=== PATIENT | female | born 1985 | race Caucasian/White ===

== ENCOUNTER 2016-06-10 13:53 | Emergency (ER) | payer SELFPAY ==
[2016-06-10 15:37] LABS: Bilirubin,Urine NEG (Negative); Blood,Urine SM (Negative); Ketones,Urine 20 mg/dL (Negative); Leukocyte Esterase,Urine SM (Negative); Mucus,Urine FEW /HPF; Nitrite,Urine POS (Negative); Protein,Urine <15 mg/dL mg/dL (Negative)
[2016-06-10 15:38] LABS: Alanine Aminotransferase 15 units/L (7-56); Albumin 4.5 g/dL (3.9-5); Albumin/Globulin Ratio 1.5 %; Alkaline Phosphatase 65 units/L (35-129); Anion Gap 18 mmol/L; Bilirubin,Total < 0.20 mg/dL (0.1-1.2); Blood Urea Nitrogen 5 mg/dL (7-17); Carbon Dioxide 21 mmol/L (22-30); Chloride 97.7 mmol/L (98-107); Glucose 93 mg/dL (65-100); Lipase 44 units/L (13-60); Potassium 3.4 mmol/L (3.6-5.0); Sodium 133 mmol/L (137-145); Total Protein 7.6 g/dL (6.3-8.2)
[2016-06-10 15:59] LABS: Basophils % (Auto) 0.5 % (0.0-1.8); Eosinophils % (Auto) 2.1 % (0.0-4.3); Hematocrit 33.4 % (30.3-42.9); Hemoglobin 10.7 gm/dl (10.1-14.3); Mean Corpuscular HGB Conc 32 % (30-34); Mean Corpuscular Volume 70 fl (79-97); Platelet Count 415 K/mm3 (140-440); Red Blood Count 4.75 M/mm3 (3.65-5.03); Red Cell Distribution Width 19.5 % (13.2-15.2); White Blood Count 6.9 K/mm3 (4.5-11.0)
[2016-06-10 16:00] LABS: Mean Corpuscular Hemoglobin 23 pg (28-32)
[2016-06-10] MEDS ORDERED: ZOFRAN IV ONE (21:17)
[2016-06-10] MEDS ORDERED: NACL 0.9% 1000 ML 1,000 ML IV ONE (21:17)
[2016-06-10] MEDS ORDERED: TYLENOL PO ONE (21:17)
--- NOTE | 2016-06-10 21:22 | Emergency Department Report ---
ED HPI - General Chief complaint: Abdominal Pain Stated complaint: PREG/ABDOMINAL PAIN Time Seen by Provider: 06/10/16 21:17 Source: patient Mode of arrival: Ambulatory Limitations: No Limitations - History of Present Illness Initial comments: Patient is a 30-year-old female at approximately 6 weeks gestation presenting with lower abdominal cramping 3 days. Patient reports for the past 3 days she's had constant, sharp, crampy abdominal pain without associated radiation. Associated nausea and tactile fevers. Patient has not tried anything [id number]. Patient is smoking a pack per day, does not take any prenatals, and has no care yet. Pt does reports constipation, but she is normally irregular, last BM was small and this morning. She has had C- sections in the past. Otherwise no vomiting, shortness of breath, chest pain, trauma, falls, sick contacts, travel, vaginal fluid loss, vaginal bleeding - Related Data Previous Rx's Medication Instructions Recorded Last Taken Type Cephalexin [Keflex] 500 mg PO ONCE #20 capsule 06/11/16 Unknown Rx Allergies Allergy/AdvReac Type Severity Reaction Status Date / Time No Known Allergies Allergy Unverified 06/10/16 14:48 ED Review of Systems ROS: Stated complaint: PREG/ABDOMINAL PAIN Other details as noted in HPI Comment: All other systems reviewed and negative ED Past Medical Hx - Past Medical History Previous Medical History?: No - Surgical History Additional Surgical History: - Social History Smoking Status: Current Every Day Smoker Substance Use Type: None - Medications Home Medications: Home Medications Medication Instructions Recorded Confirmed Last Taken Type Cephalexin [Keflex] 500 mg PO ONCE #20 capsule 06/11/16 Unknown Rx ED Physical Exam - General Limitations: No Limitations General appearance: alert, in no apparent distress - Head Head exam: Present: atraumatic, normocephalic - Eye Eye exam: Present: normal appearance - ENT ENT exam: Present: mucous membranes moist - Neck Neck exam: Present: normal inspection - Respiratory Respiratory exam: Present: normal lung sounds bilaterally. Absent: respiratory distress - Cardiovascular Cardiovascular Exam: Present: regular rate, normal rhythm, normal heart sounds. Absent: irregular rhythm, systolic murmur, diastolic murmur, rubs, gallop - GI/Abdominal GI/Abdominal exam: Present: soft, normal bowel sounds. Absent: distended, tenderness, guarding, rebound, rigid, hyperactive bowel sounds, hypoactive bowel sounds, mass, pulsatile mass, hernia - Extremities Exam Extremities exam: Present: normal inspection - Back Exam Back exam: Present: normal inspection - Neurological Exam Neurological exam: Present: alert, oriented X3 - Psychiatric Psychiatric exam: Present: normal affect, normal mood - Skin Skin exam: Present: warm, dry, intact, normal color. Absent: rash ED Course Vital Signs 06/10/16 06/10/16 06/10/16 14:48 21:15 21:31 Temperature 98.0 F 98.3 F Pulse Rate 79 72 Respiratory 18 18 14 Rate Blood Pressure 113/63 Blood Pressure 122/78 [Right] O2 Sat by Pulse 100 99 Oximetry ED Medical Decision Making - Lab Data Result diagrams: 06/10/16 15:00 06/10/16 15:00 - Radiology Data Radiology results: image reviewed Pelvic US: IUP 7w 5d HR: 143 bpm - Medical Decision Making Results discussed with patient. Pt encouraged to follow up with her OB this week , smoking cessation discussed, importance of pre- vitamins discussed. Pt given dose of keflex here in the ED Critical care attestation.: If time is entered above; I have spent that time in minutes in the direct care of this critically ill patient, excluding procedure time. ED Disposition Clinical Impression: Abdominal pain during , UTI (urinary tract infection) during Disposition: DISCHARGED TO HOME OR SELFCARE Is pt being admited?: No Condition: Stable Instructions: Urinary Tract Infection in Women (ED), Abdominal Pain in (ED) Prescriptions: Cephalexin [Keflex] 500 mg PO ONCE #20 capsule Referrals: PRIMARY CARE, [Primary Care Provider] - 3-5 Days
[2016-06-10] MEDS ORDERED: MORPHINE IV ONE (23:33)
[2016-06-11] MEDS ORDERED: KEFLEX PO ONE (00:31)
--- NOTE | 2016-06-11 00:59 | Ultrasound Report ---
FINAL REPORT PROCEDURE: US OB TRANSVAGINAL TECHNIQUE: Real-time transvaginal sonography of the uterus, placenta, amniotic fluid, adnexa, and fetus was performed with image documentation. Measurements were obtained to determine age/size. M-mode Doppler was used to document heartbeat. CPT 19197 HISTORY: threatened ab COMPARISON: Transabdominal OB ultrasound also performed today. FINDINGS: The report for this exam was generated using images from both the transabdominal and transvaginal OB ultrasound both of which were performed today. Gestational sac is visualize located centrally in the endometrial canal. heart rate of 149 beats per minute is detected. No evidence of subchorionic hemorrhage. Shape of the gestational sac appears normal. pole and yolk sac are visualized. Mahomet-rump length measurement 12.3 millimeters corresponds to an age is 7 weeks 3 days. Mildly hypoechoic mural nodule is seen mid uterine myometrium to the right measuring 3.6 x 3.6 centimeter consistent with a uterine fibroid. No free fluid is seen in the cul-de-sac. The right ovary is unremarkable measuring 3.3 x 2.2 x 3.4 centimeter. The left ovary measures 3.6 x 1.4 x 2.7 centimeter and shows no abnormality. IMPRESSION: There is a single living intrauterine . By crown-rump length measurement the estimated age is 7 weeks 3 days placing EDC 01/25/2017 plus or minus 0.5 weeks. No evidence of subchorionic hemorrhage. Uterine fibroid appears to be present. Ovaries are unremarkable. No evidence of subchorionic hemorrhage. Shape of the gestational sac appears normal. Fetus currently too small to assess anatomy. Consider follow-up exam at 18-20 weeks.
--- NOTE | 2016-06-11 01:00 | Ultrasound Report ---
FINAL REPORT PROCEDURE: US OB \T\lt; = 14 WEEKS FETUS TECHNIQUE: Real-time transabdominal sonography of the uterus, placenta, amniotic fluid, adnexa, and fetus was performed with image documentation. Measurements were obtained to determine age/size. M-mode Doppler was used to document heartbeat. CPT 03367 HISTORY: threatened ab COMPARISON: Transvaginal OB ultrasound also performed today. FINDINGS: The report for this exam was generated using images from both the transabdominal and transvaginal OB ultrasound both of which were performed today. Gestational sac is visualize located centrally in the endometrial canal. heart rate of 149 beats per minute is detected. No evidence of subchorionic hemorrhage. Shape of the gestational sac appears normal. pole and yolk sac are visualized. [place]-rump length measurement 12.3 millimeters corresponds to an age is 7 weeks 3 days. Mildly hypoechoic mural nodule is seen mid uterine myometrium to the right measuring 3.6 x 3.6 centimeter consistent with a uterine fibroid. No free fluid is seen in the cul-de-sac. The right ovary is unremarkable measuring 3.3 x 2.2 x 3.4 centimeter. The left ovary measures 3.6 x 1.4 x 2.7 centimeter and shows no abnormality. IMPRESSION: There is a single living intrauterine . By crown-rump length measurement the estimated age is 7 weeks 3 days placing EDC 01/25/2017 plus or minus 0.5 weeks. No evidence of subchorionic hemorrhage. Uterine fibroid appears to be present. Ovaries are unremarkable. No evidence of subchorionic hemorrhage. Shape of the gestational sac appears normal. Fetus currently too small to assess anatomy. Consider follow-up exam at 18-20 weeks.
[2016-06-11 01:22] VITALS: BP 118/72
== END 2016-06-11 01:23 | disposition home or self-care (01) ==
LOC: ED 13:53
DX: O23.41 Unspecified infection of urinary tract in pregnancy, first trimester (principal); R10.9 Unspecified abdominal pain; F17.200 Nicotine dependence, unspecified, uncomplicated; Z3A.01 Less than 8 weeks gestation of pregnancy
CPT/HCPCS: 36415; 76801; 76817; 80053; 81001; 83690; 84702; 84703; 85025; 96365; 96366; 96375; 99284; J2270; J2405; J7030

== ENCOUNTER 2020-02-28 22:05 | Inpatient (IN) | payer OTHER ==
[2020-02-28] MEDS ORDERED: LACTATED RINGERS 1,000 ML ONE (23:01)
[2020-02-28] MEDS ORDERED: LACTATED RINGERS 1,000 ML IV ONE (23:23)
[2020-02-29] MEDS ORDERED: TERBUTALINE 1 MG/1 ML INJ ONE (00:04)
[2020-02-29] MEDS ORDERED: FAMOTIDINE 20 MG/2 ML INJ IV ONE (00:07)
[2020-02-29] MEDS ORDERED: BICITRA ORAL LIQD 30ML PO ONE (00:07)
[2020-02-29] MEDS ORDERED: METOCLOPRAMIDE 10 MG/2 ML INJ IV ONE (00:07)
--- NOTE | 2020-02-29 00:14 | History and Physical Report ---
History of Present Illness Date of examination: 02/29/20 Chief complaint: labor contractions, prev c/s x 2 History of present illness: EDC Confirmation: 03/14/2020 Past History : 8 Term Births: 3 Premature Births: 2 Living Children: 4 Para: 5 Mult. Births: 0 Prev : 2 Prev. attempt? 1 Aborta: 2 Elect. Ab: 1 Spont. Ab: 1 Ectopics: 0 # 1 Delivery date: 2003 Weeks Gestation: ?? labor: yes Delivery type: Delivery location: [place] Sex: Male weight: 5# Comments: , unsure of gestation # 2 Delivery date: 2011 Weeks Gestation: term labor: no Delivery type: Delivery location: [place] Infant Sex: Male weight: 5# # 3 Delivery date: 2013 Weeks Gestation: term labor: no Delivery type: Delivery location: [place] [facility] Sex: Male weight: ?? Comments: Emergency c/s for distress, unknown weight # 4 Delivery date: 2014 Weeks Gestation: term labor: no Delivery type: Delivery location: [place] [facility] Sex: Female weight: 6#3 # 5 Delivery date: 2015 Weeks Gestation: labor: yes Delivery type: Delivery location: [place] [facility] Sex: Female weight: 4# Comments: 3 months of age, sleep apnea # 6 Delivery date: 2016 Delivery type: EAB # 7 Delivery date: 2018 Delivery type: SAB Comments: expectant management Past Medical History: Reviewed history from 02/05/2019 and no changes required: Negative Past Medical History Past Surgical History: Reviewed history from 02/05/2019 and no changes required: c/s x 2 Past Medical History 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 of genital herpes: no Partner hx. of genital herpes: no Rash, Viral, or Febrile illness since last LMP? no Varicella/Chicken Pox Status: Previous Disease Genetic History Congenital Heart Defect: Mom: no Dad: no Max Disease: Mom: no Dad: no Thalassemia Mom: no Dad: no Neural Tube Defect Mom: no Dad: no Down's Syndrome Mom: no Dad: no Antione-Sachs Mom: no Dad: no Sickle Cell Disease/Trait Mom: no Dad: no Hemophilia Mom: no Dad: no Muscular Dystrophy Mom: no Dad: no Cystic Fibrosis Mom: no Dad: no Macarthur Chorea Mom: no Dad: no Mental Retardation Mom: no Dad: no Fragile X Mom: no Dad: no Other Genetic/Chromosomal Disorder Mom: no Dad: no Child w/other defect Mom: no Dad: no Enviromental Exposures Xray Exposure: no Medication, drug, or alcohol use since LMP: no Chemical/Other Exposure: no Exposure to Cat Liter: no Hx of Parvovirus (Fifth Disease): no Occupational Exposure to Children: none Active Medications (reviewed today): None Current Allergies (reviewed today): No known allergies Past History Past Medical History: other (see HPI) Past Surgical History: other (see HPI) 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) Family/Genetic History: other (see HPI) Social history: no significant social history - Obstetrical History Expected Date of Delivery: 03/14/20 Actual Gestation: 38 Week(s) 0 Day(s) : 8 Para: 5 Hx # Term Pregnancies: 3 Number of Pregnancies: 2 Spontaneous Abortions: 1 Induced : 1 Number of Living Children: 4 Medications and Allergies Allergies Allergy/AdvReac Type Severity Reaction Status Date / Time No Known Allergies Allergy Unverified 06/10/16 14:48 Active Meds: Active Medications Citric Acid/Sodium Citrate (Bicitra Oral Liqd 30ml) 30 ml PO ONCE ONE Stop: 02/29/20 00:08 Famotidine (Famotidine 20 Mg/2 Ml Inj) 20 mg IV ONCE ONE Stop: 02/29/20 00:08 Lactated Ringer's (Lactated Ringers) 1,000 mls @ 999 mls/hr IV BOLUS ONE Stop: 02/29/20 00:23 Lactated Ringer's (Lactated Ringers) 1,000 mls @ 2,250 mls/hr IV PREOP VALENCIA Stop: 03/01/20 00:42 Oxytocin/Sodium Chloride (Pitocin/Ns 30 Unit/500ml) 30 units in 500 mls @ 0 mls/hr IV TITR VALENCIA; Protocol Cefazolin Sodium (Ancef/Sterile Water 2 Gm/20 Ml) 2 gm in 20 mls @ 80 mls/hr IV PREOP NR; Protocol Metoclopramide HCl (Metoclopramide 10 Mg/2 Ml Inj) 10 mg IV ONCE ONE Stop: 02/29/20 00:08 Review of Systems All systems: negative - Vital Signs Vital signs: Vital Signs Temp Resp 98.1 F 20 02/28/20 22:26 02/28/20 22:26 Temp Pulse Resp BP Pulse Ox 98.1 F 94 H 20 135/90 100 02/28/20 22:26 02/29/20 00:05 02/28/20 22:26 02/29/20 00:02 02/29/20 00:05 - Physical Exam Breasts: Positive: normal Cardiovascular: Regular rate Lungs: Positive: Clear to auscultation, Normal air movement Abdomen: Positive: normal appearance, soft Genitourinary (Female): Positive: normal external genitalia, normal perenium Vulva: both: normal Vagina: Positive: normal moisture Uterus: Positive: normal size Anus/Rectum: Positive: normal perianal skin Extremities: Positive: normal Deep Tendon Reflex Grade: Normal +2 - Obstetrical FHR: category 2 Uterine Contraction Monitor Mode: External Cervical Dilatation: 2 Cervical Effacement Percentage: 50 station: -3 Uterine Contraction Frequency (min): 2-3 Uterine Contraction Duration: 60 Uterine Contraction Pattern: Regular Uterine Tone Measurement Phase: Resting Uterine Contraction Intensity: Mild Results All other labs normal. Assessment and Plan 34y/o @ 38+0 weeks arrived with c/o contractions. she was given a 1 liter bolus and ctx continued and increased in frequency and intensity. FHT are not tolerating ctx, 4 minute decelerations down to the 60's noted that resolved with rn interventions. 1 dose of brethine given, will prepare for repeat c/s. Dr. Burciaga aware and in route. - Patient Problems (1) 38 weeks gestation of Current Visit: Yes Status: Acute (2) Previous section Current Visit: Yes Status: Acute (3) Active labor at term Current Visit: Yes Status: Acute
[2020-02-29] MEDS ORDERED: LACTATED RINGERS 1,000 ML IV SCH (00:15)
[2020-02-29 00:48] LABS: Hematocrit 28.7 % (30.3-42.9); Hemoglobin 10.2 gm/dl (10.1-14.3); Mean Corpuscular HGB Conc 36 % (30-34); Mean Corpuscular Volume 79 fl (79-97); Platelet Count 437 K/mm3 (140-440); Red Blood Count 3.65 M/mm3 (3.65-5.03); Red Cell Distribution Width 14.9 % (13.2-15.2)
--- NOTE | 2020-02-29 00:48 | Anesthesia Day of Surgery ---
Anesthesia Day of Surgery - Day of Surgery Patient Examined: Yes Patient H&P Reviewed: Yes Patient is NPO: Yes Beta Blockers: No Cardiac Clearance: No Pulmonary Clearance: No Po's Test: N/A
[2020-02-29] MEDS ORDERED: NALOXONE 0.4 MG/1 ML INJ IV PRN (00:50)
[2020-02-29] MEDS ORDERED: ONDANSETRON 4 MG/2 ML INJ IV PRN (00:50)
--- NOTE | 2020-02-29 00:50 | Anesthesia Consultation ---
Anesthesia Consult and Med Hx Date of service: 02/29/20 - Airway Anesthetic Teeth Evaluation: Poor, Caps ROM Head & Neck: Adequate Mental/Hyoid Distance: Adequate Mallampati Class: Class II Intubation Access Assessment: Probably Good - Pulmonary Exam CTA: Yes - Cardiac Exam Cardiac Exam: RRR - Pre-Operative Health Status ASA Pre-Surgery Classification: ASA2 Proposed Anesthetic Plan: Spinal - Pulmonary Hx Smoking: Yes Hx Asthma: Yes (LAST ATTACK 2004) Hx Respiratory Symptoms: No SOB: Yes COPD: No Home Oxygen Therapy: No Hx Pneumonia: No Hx Sleep Apnea: No - Cardiovascular System Hx Hypertension: No Hx Coronary Artery Disease: No Hx Heart Attack/AMI: No Hx Angina: No Hx Percutaneous Transluminal Coronary Angioplasty (PTCA): No Hx Cardia Arrhythmia: No Hx Pacemaker: No Hx Internal Defibrillator: No Hx Valvular Heart Disease: No Hx Heart Murmur: No Hx Peripheral Vascular Disease: No - Central Nervous System Hx Neuromuscular Disorder: No Hx Seizures: No CVA: No Hx Back Pain: Yes Hx Psychiatric Problems: No - Gastrointestinal Hx Ulcer: No Hx Gastroesophageal Reflux Disease: Yes - Endocrine Hx Renal Disease: No Hx End Stage Renal Disease: No Hx Cirrhosis: No Hx Liver Disease: No Hx Insulin Dependent Diabetes: No Hx Non-Insulin Dependent Diabetes: No Hx Thyroid Disease: No Hx Hypothyroidism: No Hx Hyperthyroidism: No - Hematic Hx Anemia: Yes (2018) Hx Sickle Cell Disease: No - Other Systems Hx Alcohol Use: No Hx Substance Use: No Hx Cancer: No Hx Obesity: Yes
[2020-02-29] MEDS ORDERED: fentaNYL-BUPIV 2 MCG/ML-0.125% 200 MCG/100 ML BAG EPIDURAL SCH (01:00)
[2020-02-29] MEDS ORDERED: ceFAZolin/Water 2 GM/20 ML 2 GM/20 ML SYRINGE IV NR (01:00)
[2020-02-29] MEDS ORDERED: OXYTOCIN DRIP 30 UNITS/500 ML BAG IV SCH ×2 (01:00→05:17)
[2020-02-29] MEDS ORDERED: BUPIVACAINE/PF (0.5%) 5 MG/1 ML 30 ML VIAL INFILTRATI ONE (01:17)
[2020-02-29] MEDS ORDERED: dexAMETHasone 20 MG/5 ML VIAL ONE (01:17)
[2020-02-29] MEDS ORDERED: ONDANSETRON 4 MG/2 ML INJ ONE (01:33)
[2020-02-29] MEDS ORDERED: PHENYLEPHRINE/NS 1,000 MCG/10 ML SYRINGE (OR USE) IV ONE (01:36)
[2020-02-29] MEDS ORDERED: SODIUM CHLORIDE 0.9% IRR 1,500 ML BOTTLE IR ONE (01:47)
[2020-02-29] MEDS ORDERED: WATER FOR IRRIG STERILE 1,500 ML BOTTLE IR ONE (01:47)
[2020-02-29] MEDS ORDERED: SODIUM CHLORIDE 0.9% 500 ML 500 ML ONE (01:52)
[2020-02-29] MEDS ORDERED: SODIUM CHLORIDE 0.9% 100 ML ONE (01:52)
[2020-02-29] MEDS ORDERED: OXYTOCIN 10 UNIT/1 ML INJ ONE ×2 (01:57→01:58)
--- NOTE | 2020-02-29 03:07 | Operative Report ---
Operative Report Operative Report: Date of operation: 02/29/2020 Pre-operative diagnosis: 1. [] weeks gestational age 2. [] 3. [] 4. BMI [] Post-operative diagnosis: [] Procedure name(s): Primary low transverse delivery Surgeon: Albertina Burciaga MD Farm Mortgage Agent: [] Anesthesia: [] EBL: [] mL Urine output: [] mL of clear urine out at the end of the procedure Fluids: [] mL Findings: Liveborn [] infant weight [] Lbs. [] oz. Apgars of [] and [] at one and 5 minutes Indications: [] Procedure: Patient was taking to the operating room. []l anesthesia was []. Patient was then prepped and draped in the usual sterile fashion Timeout was performed. Once an appropriate level of anesthesia was noted, a Pfannenstiel incision was made and extended the fascia which was incised and extended lateral direction. The overlying fascia was sharply dissected away from the underlying rectus muscles in the superior inferior direction. The midline was entered bluntly. Bladder blade was placed. Vesicouterine fold was incised with blunt dissection bladder flap was created. A transverse incision was made in the lower uterine segment and extended superolateral direction with finger fractionation. [] fluid was noted. Infant was delivered from the [] position, with spontaneous cry and excellent tone. Mouth and nose bulb suctioned. Cord was doubly clamped and cut infant was given to the resuscitation team present. Placenta was delivered. The uterus was exteriorized and cleaned of any further placental tissue and products of conception. Uterine incision was approximated using 0 Vicryl in a running interlocking stitch followed by further suture of 0 Vicryl in imbricating fashion. When hemostasis was noted the uterus was allowed back in the pelvic cavity. Pelvis was irrigated with warm normal saline. Once hemostasis was noted the rectus muscles were approximated using 0 Vicryl interrupted simple stitches 3. Once hemostasis was noted the fascia was approximated using 0 Vicr yl simple running stitch. The incision was irrigated with warm saline, once hemostasis as noted, the subcuticular adipose tissue was reapproximated using 3- 0 Vicryl in a simple running fashion. Skin was approximated using 4-0 Vicryl on a Perez needle in a subcuticular manner. Counts were correct x3. Patient tolerated the procedure well, she was taken to recovery room in stable condition.
--- NOTE | 2020-02-29 03:18 | Operative Report ---
Operative Report Operative Report: Date of operation: 02/29/2020 Pre-operative diagnosis: 1. 38 weeks gestational age 2. Active labor 3. BMI 33 kg/m 4. Desires bilateral salpingectomy for sterilization 5. Previous delivery x2 desires repeat delivery Post-operative diagnosis: 1. 38 weeks gestational age 2. Active labor 3. BMI 33 kg/m 4. Desires bilateral salpingectomy for sterilization 5. Previous delivery desires repeat delivery Procedure name(s): Low uterine transverse delivery with bilateral salpingectomy for sterilization Surgeon: Albertina Burciaga MD Head Of Academic Technology: Darya Mendoza CNM Anesthesia: Spinal EBL: 600 mL Urine output: 100 mL of clear urine out at the end of the procedure Fluids: 700 mL Findings: Liveborn male infant weight 6 Lbs. 2 oz. Apgars of 7 and 8 at one and 5 minutes Indications: [] Procedure: Patient was taking to the operating room. Spinal anesthesia was placed. Patient was then prepped and draped in the usual sterile fashion Timeout was performed. Once an appropriate level of anesthesia was noted, a Pfannenstiel incision was made and extended the fascia which was incised and extended lateral direction. The overlying fascia was sharply dissected away from the underlying right rectus muscles in the superior inferior direction. There was no identifiable left rectus muscle only peritoneum was noted. The fascia was gently dissected away from the peritoneum and superior inferior direction. The midline was entered bluntly. Bladder blade was placed. Vesicouterine fold was incised with blunt dissection bladder flap was created. A transverse incision was made in the lower uterine segment and extended superolateral direction with finger fractionation. Clear fluid was noted. was delivered from the cephalic ROT position. had spontaneous cry and excellent tone. Mouth and nose bulb were bulb suctioned. Cord was doubly clamped and cut infant was given to the resuscitation team present. Placenta was delivered and sent to pathology. The uterus was exteriorized and cleaned of any further placental tissue and products of conception. Uterine incision was approximated using 0 Vicryl in a running interlocking stitch followed by further suture of 0 Vicryl in imbricating fashion. Once hemostasis was noted, confirmation was obtained from patient to proceed with salpingectomy for sterilization. The left tube was grasped with a Leyla clamp and salpingectomy was performed without complications. Hemostasis was noted. The same procedure was performed on the right fallopian tube. Both tubes were sent to pathology in separate specimen containers. When hemostasis was noted the uterus was allowed back in the pelvic cavity. Pelvis was irrigated with warm normal saline. Interceed was placed on the anterior aspect of the uterus after hemostasis was noted. Once hemostasis was noted the fascia was approximated using 0 Vicryl simple running stitch. The incision was irrigated with warm saline, once hemostasis as noted, the subcuticular adipose tissue was reapproximated using 3-0 Vicryl in a simple running fashion. Once hemostasis was noted, skin was approximated using 4-0 Vicryl on a Perez needle in a subcuticular manner. Counts were correct x3.
--- NOTE | 2020-02-29 03:29 | Progress Note ---
Spinal Anesthesia Block - Spinal Anesthesia Block Start Time: : Stop Time: : Performed by:: JAYLIN EARL Procedure: Patient IDed, H&P reviewed, all questions and concerns were answered, and consent was signed. Timeout was performed at bedside. Patient in sitting position. Sterile prep and drape was performed. [3] ml of 1% lidocaine skin wheal at L[3]- L [4]. Needle introducer advanced. 25 gauge spinal needle advanced. Clear, free flowing CSF. negative blood, negative paresthesia. Spinal dose given. All needles removed. Patient tolerated procedure.
--- NOTE | 2020-02-29 03:30 | Post Anesthesia Evaluation ---
- Post Anesthesia Evaluation Patient Participated: Yes Airway Patent: Yes Stable Respiratory Function: Yes Nausea/Vomiting: No Temp > 96.8F: Yes Pain Manageable: Yes Adequeate Hydration: Yes Anesthesia Complications: No Block Receding Appropriately: Yes Patient on Ventilator: No
[2020-02-29] MEDS: HYDROmorphone 1 MG/1 ML INJ IV PRN ×2 (04:20→04:35)
[2020-02-29] MEDS ORDERED: WITCH HAZEL/ GLYCERIN PAD TP PRN (05:17)
[2020-02-29] MEDS ORDERED: PROMETHAZINE 25 MG RECT SUPP PR PRN (05:17)
[2020-02-29] MEDS ORDERED: MORPHINE 2 MG/1 ML INJ IV PRN (05:17)
[2020-02-29] MEDS ORDERED: SENNOSIDES 8.6 MG TAB PO PRN (05:17)
[2020-02-29] MEDS ORDERED: LANOLIN/ZINC/DIMETHICONE (LANSINOH) 7 GM TP PRN (05:17)
[2020-02-29] MEDS ORDERED: D5W/LACTATED RINGERS 1,000 ML IV SCH (05:17)
[2020-02-29] MEDS ORDERED: MORPHINE 4 MG/1 ML INJ IV PRN (05:17)
[2020-02-29] MEDS ORDERED: MAGNESIUM HYDROXIDE (MOM) ORAL LIQD UDC PO PRN (05:17)
[2020-02-29] MEDS: ACETAMINOPHEN 500 MG TAB PO SCH ×2 (10:31→12:00)
[2020-02-29] MEDS: KETOROLAC 30 MG/1 ML INJ IV SCH ×2 (10:32→18:25)
[2020-02-29] MEDS: ceFAZolin/NS 1 GM/50 ML 1 GM/50 ML BAG IV SCH ×2 (10:32→18:40)
[2020-02-29] MEDS: SIMETHICONE 80 MG CHEW TAB PO PRN (10:33)
--- NOTE | 2020-02-29 12:53 | Progress Note ---
Assessment and Plan A: 34 y.o. s/p rpt (scheduled for Mar). Term . P: Continue with care. Encourage ambulation. Advance diet as tolerated. Subjective - Subjective Date of service: 02/29/20 (Pt doing well. ) Principal diagnosis: Post op repeat , approximately 12 hours Patient reports: appetite normal, voiding normally, pain well controlled, flatus, ambulating normally : doing well Objective - Vital Signs Latest vital signs: Vital Signs Temp Pulse Resp BP BP Pulse Ox 02/29/20 12:44 98.4 F 80 18 112/72 99 02/29/20 10:32 18 02/29/20 10:31 18 02/29/20 08:04 98.2 F 74 18 107/58 98 02/29/20 04:20 18 02/29/20 04:00 98.2 F 80 12 105/80 98 02/29/20 03:45 12 108/88 98 02/29/20 03:30 82 14 105/74 97 02/29/20 03:15 88 14 118/90 97 02/29/20 03:00 97.8 F 100 H 18 112/88 98 02/29/20 01:05 117 H 98 02/29/20 01:01 120 H 148/68 02/29/20 01:00 114 H 98 02/29/20 00:55 122 H 99 02/29/20 00:50 126 H 98 02/29/20 00:46 109 H 142/81 02/29/20 00:45 111 H 99 02/29/20 00:40 130 H 99 02/29/20 00:35 102 H 99 02/29/20 00:32 107 H 139/72 02/29/20 00:30 101 H 99 02/29/20 00:26 106 H 155/74 02/29/20 00:25 96 H 99 02/29/20 00:20 100 H 99 02/29/20 00:17 100 H 161/90 02/29/20 00:15 104 H 99 02/29/20 00:10 89 100 02/29/20 00:05 94 H 100 02/29/20 00:02 80 135/90 02/29/20 00:00 85 98 02/28/20 23:55 84 97 02/28/20 23:50 94 H 98 02/28/20 23:47 83 134/78 02/28/20 23:45 87 98 02/28/20 23:40 98 H 98 02/28/20 23:35 94 H 97 02/28/20 23:32 95 H 134/71 02/28/20 23:30 97 H 98 02/28/20 23:25 91 H 98 02/28/20 23:20 88 99 02/28/20 23:16 92 H 134/78 02/28/20 23:15 87 100 02/28/20 23:10 94 H 100 02/28/20 23:05 88 97 02/28/20 23:01 85 137/86 02/28/20 23:00 86 97 02/28/20 22:55 82 97 02/28/20 22:50 89 98 02/28/20 22:45 86 132/79 95 02/28/20 22:26 98.1 F 20 Intake and Output 02/28/20 02/29/20 02/29/20 22:59 06:59 14:59 Intake Total 900 240 Output Total 900 1000 Balance 0 -760 Intake: IV 900 Oral 240 Output: Urine 900 1000 Indwelling Catheter 1000 Uretheral (Garcia) 400 Other: Total, Intake Amount 240 Total, Output Amount 1000 # Voids Void 1 Weight 194 lb Estimated Blood Loss 600 - Exam Breasts: Present: deferred Cardiovascular: Present: Regular rate Lungs: Present: Normal air movement Abdomen: Present: normal appearance, soft Vulva: both: normal Uterus: Present: normal, firm Extremities: Present: normal Deep Tendon Reflex Grade: Normal but brisk +3 Incision: Present: normal, dry, intact, other (No sx of symptoms of infection noted.) - Labs Labs: Abnormal lab results 02/28/20 Range/Units 23:15 Hct 28.7 L (30.3-42.9) % MCHC 36 H (30-34) %
[2020-02-29 14:00] LABS: Hemoglobin 9.7 gm/dl (10.1-14.3)
[2020-02-29] MEDS: HYDROcodone/ACETAMINOPHEN 5-325 MG TAB PO PRN (15:10)
[2020-03-01] MEDS ORDERED: ACETAMINOPHEN 500 MG TAB PO SCH (00:30)
[2020-03-01] MEDS ORDERED: oxyCODONE /ACETAMINOPHEN 5-325MG TAB PO PRN (02:43)
[2020-03-01] MEDS: IBUPROFEN 800 MG TAB PO PRN (05:36)
[2020-03-01] MEDS ORDERED: DIPHtheria,PERTUSSIS(ACELL),TETANUS VACCINE/PF 0.5 ML VIAL IM ONE (06:00)
--- NOTE | 2020-03-01 09:45 | Progress Note ---
Assessment and Plan patient doing well, no complaints. she is OOB taking care of baby. incision D&I, vssaf, H&H9.7/29.0, asymptomatic anemia s/p acute blood loss. - Patient Problems (1) delivery delivered Current Visit: Yes Status: Acute Plan to address problem: advance activity and diet as tolerated anticipate d/c home tomorrow. Subjective - Subjective Date of service: 03/01/20 Principal diagnosis: postop day #1 s/p repeat c/s Interval history: EDC Confirmation: 03/14/2020 Past History : 8 Term Births: 3 Premature Births: 2 Living Children: 4 Para: 5 Mult. Births: 0 Prev : 2 Prev. attempt? 1 Aborta: 2 Elect. Ab: 1 Spont. Ab: 1 Ectopics: 0 # 1 Delivery date: 2003 Weeks Gestation: ?? labor: yes Delivery type: Delivery location: [place] Sex: Male weight: 5# Comments: , unsure of gestation # 2 Delivery date: 2011 Weeks Gestation: term labor: no Delivery type: Delivery location: [place] Infant Sex: Male weight: 5# # 3 Delivery date: 2013 Weeks Gestation: term labor: no Delivery type: Delivery location: [place] Sex: Male weight: ?? Comments: Emergency c/s for distress, unknown weight # 4 Delivery date: 2015 Weeks Gestation: term labor: no Delivery type: Delivery location: [place] Infant Sex: Female weight: 6#3 # 5 Delivery date: 2016 Weeks Gestation: labor: yes Delivery type: Delivery location: [place] Sex: Female weight: 4# Comments: 3 months of age, sleep apnea # 6 Delivery date: 2016 Delivery type: EAB # 7 Delivery date: 2018 Delivery type: SAB Comments: expectant management Past Medical History: Reviewed history from 02/05/2019 and no changes required: Negative Past Medical History Past Surgical History: Reviewed history from 02/05/2019 and no changes required: c/s x 2 Past Medical History Surgery (Non-front desk specialist): c/s x 2 Infection History Hx of STD: none HIV Risk Eval: low risk Hepatitis B Risk Eval: low risk Personal hx. of genital herpes: no Partner hx. of genital herpes: no Rash, Viral, or Febrile illness since last LMP? no Varicella/Chicken Pox Status: Previous Disease Genetic History Congenital Heart Defect: Mom: no Dad: no Max Disease: Mom: no Dad: no Thalassemia Mom: no Dad: no Neural Tube Defect Mom: no Dad: no Down's Syndrome Mom: no Dad: no Antione-Sachs Mom: no Dad: no Sickle Cell Disease/Trait Mom: no Dad: no Hemophilia Mom: no Dad: no Muscular Dystrophy Mom: no Dad: no Cystic Fibrosis Mom: no Dad: no [place] Chorea Mom: no Dad: no Mental Retardation Mom: no Dad: no Fragile X Mom: no Dad: no Other Genetic/Chromosomal Disorder Mom: no Dad: no Child w/other defect Mom: no Dad: no Enviromental Exposures Xray Exposure: no Medication, drug, or alcohol use since LMP: no Chemical/Other Exposure: no Exposure to Cat Liter: no Hx of Parvovirus (Fifth Disease): no Occupational Exposure to Children: none Active Medications (reviewed today): None Current Allergies (reviewed today): No known allergies Patient reports: appetite normal, voiding normally, pain well controlled, flatus, ambulating normally, no dizzy ambulation, no nauseated [place]: doing well, bottle feeding Objective - Vital Signs Latest vital signs: Vital Signs Temp Pulse Resp BP BP Pulse Ox 03/01/20 08:16 97.8 F 70 18 111/63 98 03/01/20 06:36 18 03/01/20 05:36 18 03/01/20 01:19 18 03/01/20 00:19 18 03/01/20 00:00 98.6 F 63 20 122/71 99 02/29/20 20:10 98.0 F 79 20 131/69 95 02/29/20 18:25 18 02/29/20 16:38 98.0 F 63 18 123/75 94 02/29/20 15:10 18 02/29/20 12:44 98.4 F 80 18 112/72 99 02/29/20 10:32 18 02/29/20 10:31 18 Intake and Output 02/29/20 03/01/20 03/01/20 23:59 07:59 15:59 Intake Total 50 240 240 Output Total 100 600 Balance -50 -360 240 Intake: IV 50 ANCEF/NS 1 GM/50 ML 1 gm 50 In 50 ml @ 100 mls/hr IV Q8H FOR[facility], 1928–1983 Rx#:[id number] Oral 240 240 Output: Urine 100 600 Void 100 600 Other: Total, Intake Amount 240 240 Total, Output Amount 100 600 # Voids Void 3 1 - Exam Breasts: Present: normal Cardiovascular: Present: Regular rate Lungs: Present: Clear to auscultation, Normal air movement Abdomen: Present: normal appearance, soft Vulva: both: normal Uterus: Present: normal, firm, fundal height below umbilicus Extremities: Present: normal Deep Tendon Reflex Grade: Normal +2 Incision: Present: normal, dry, intact - Labs Labs: Abnormal lab results 02/29/20 Range/Units 13:38 Hgb 9.7 L (10.1-14.3) gm/dl Hct 29.0 L (30.3-42.9) %
[2020-03-01] MEDS: HYDROcodone/ACETAMINOPHEN 5-325 MG TAB PO PRN ×2 (10:08→18:25)
[2020-03-01] MEDS: SIMETHICONE 80 MG CHEW TAB PO PRN (12:06)
[2020-03-02] MEDS: IBUPROFEN 800 MG TAB PO PRN ×2 (00:49→08:51)
--- NOTE | 2020-03-02 09:17 | Discharge Summary ---
Providers - Providers Date of Admission: 02/29/20 00:23 Date of discharge: 03/02/20 (desires d/c home today) Attending physician: SANDY MCFARLANE 02/29/20 05:17 Consult to Fish Agent [CONS] Routine Reason For Exam: Primary care physician: SANDY MCFARLANE Hospitalization Reason for admission: Labor Condition: Good Pertinent studies: H&H 9.7/29.0, asymptomatic anemia d/t acute blood loss Procedures: repeat c/s w/ salpingectomy Hospital course: uncomplicated surgery and postop course Disposition: - TO HOME OR SELFCARE - Discharge Diagnoses (1) delivery delivered Status: Acute Core Measure Documentation - Palliative Care Palliative Care/ Comfort Measures: Not Applicable - Core Measures Any of the following diagnoses?: none Exam - Constitutional Vitals: Temp Pulse Resp BP Pulse Ox 98.0 F 75 18 122/82 98 03/02/20 07:55 03/02/20 07:55 03/02/20 07:55 03/02/20 07:55 03/02/20 07:55 General appearance: Present: no acute distress, well-nourished - EENT Eyes: Present: PERRL ENT: hearing intact, clear oral mucosa - Neck Neck: Present: supple, normal ROM - Respiratory Respiratory effort: normal Respiratory: bilateral: CTA - Cardiovascular Rhythm: regular - Extremities Extremities: pulses symmetrical, No edema - Abdominal General gastrointestinal: Present: soft, non-tender, non-distended, normal bowel sounds Female genitourinary: Present: normal - Integumentary Integumentary: Present: clear, warm, dry - Musculoskeletal Musculoskeletal: gait normal, strength equal bilaterally - Psychiatric Psychiatric: appropriate mood/affect, intact judgment & insight - Neurologic Neurologic: CNII-XII intact, moves all extremities - Additional findings Additional findings: lochia scant, fundus firm, incision D&I Plan Activity: advance as tolerated Diet: regular Wound: open to air, keep clean and dry Follow up with: SANDY MCFARLANE MD [Primary Care Provider] - 7 Days (Congratulations! Please call [phone] to schedule your incision check and your son's circumcision. Bring EMLA cream to your son's appointment and wait for teaching. Call with any questions or concerns.) Prescriptions: Lidocain2.5%/Prilocai2.5% [Emla] 5 gm TP ONCE #1 tube Ibuprofen [Motrin 800 MG tab] 800 mg PO TID PRN #30 tablet PRN Reason: Pain oxyCODONE /ACETAMINOPHEN [Percocet 5/325 mg] 1 - 2 tab PO Q6HR PRN #14 tablet PRN Reason: Pain
[2020-03-02 14:29] VITALS: BP 130/76
== END 2020-03-02 14:40 | disposition home or self-care (01) | DRG 765 ==
LOC: TRG 22:05 → APU 22:08 → TRG 02-29 00:23 → APU 02-29 00:23 → OB 02-29 05:15
PROVIDERS: ADMIT Obstetrics & Gynecology; ATTEND Obstetrics & Gynecology
PROC: 10D00Z1 Extraction of Products of Conception, Low, Open Approach (ICD-10-PCS; principal; 2020-02-29)
PROC: 0UB70ZZ Excision of Bilateral Fallopian Tubes, Open Approach (ICD-10-PCS; 2020-02-29)
PROC: 3E0234Z Introduction of Serum, Toxoid and Vaccine into Muscle, Percutaneous Approach (ICD-10-PCS; 2020-03-01)
DX: O34.211 Maternal care for low transverse scar from previous cesarean delivery (principal); D62 Acute posthemorrhagic anemia; O99.52 Diseases of the respiratory system complicating childbirth; O99.02 Anemia complicating childbirth; O99.334 Smoking (tobacco) complicating childbirth; F17.200 Nicotine dependence, unspecified, uncomplicated; J45.909 Unspecified asthma, uncomplicated; O99.62 Diseases of the digestive system complicating childbirth; K21.9 Gastro-esophageal reflux disease without esophagitis; O99.214 Obesity complicating childbirth; E66.9 Obesity, unspecified; Z20.822 Contact with and (suspected) exposure to COVID-19; Z37.0 Single live birth; Z3A.38 38 weeks gestation of pregnancy; Z30.2 Encounter for sterilization
CPT/HCPCS: 36415; 59025; 85014; 85018; 85027; 86592; 86706; 86762; 86850; 86900; 86901; 87806; 88302; 90471; 90715; 96360; 96374; 96375; 99406; G0378; A6250; C1765; J0690; J1100; J1170; J1885; J2370; J2405; J2590; J2765; J3105; J3490; J7040; J7120; J7121; U0003